=== PATIENT | female | born 1960 | race Caucasian/White ===

== ENCOUNTER 2018-10-19 06:38 | Day surgery (SDC) | payer OTHER ==
[~2018-10-19] VITALS: Ht 160 cm; Wt 70.8 kg
[2018-10-19] VITALS (8 sets, daily range): BP systolic 106–142; BP diastolic 52–76
--- NOTE | 2018-10-19 06:13 | Anethesia Preoperative Eval ---
Anesthesia Pre-op PMH/ROS General Date of Evaluation: Oct 19, 2018 Time of Evaluation: 06:09 Anesthesiologist: belgica ASA Score: ASA 3 Mallampati Score Class I : Soft palate, uvula, fauces, pillars visible Class II: Soft palate, uvula, fauces visible Class III: Soft palate, base of uvula visible Class IV: Only hard plate visible Mallampati Classification: Class II Surgeon: yane Diagnosis: gerd, abdominal bloating Surgical Procedure: egd/colonoscopy Anesthesia History: none Social History: smoking - nonsmoker Family History: no anesthesia problems Allergies: Coded Allergies: No Known Allergies (Unverified , 10/19/18) Medications: see eMAR Patient NPO?: Yes Past Medical History Gastrointestinal/Genitourinary: Reports: GERD, other - hep a, liseth, cervical cancer, abdominal bloating Hematology/Immune: Reports: other - iron deficiency PSxH Narrative: tonsillectomy, appendectomy, liseth Anesthesia Pre-op Phys. Exam Physician Exam Last Vital Signs Date Time Temp Pulse Resp B/P (MAP) Pulse Ox O2 Delivery O2 Flow Rate FiO2 10/19/18 07:06 Room Air 10/19/18 07:00 97.6 61 17 106/61 98 Constitutional: NAD Neurologic: CN 2-12 intact Cardiovascular: RRR Respiratory: CTA Gastrointestinal: S/NT/ND Airway Exam Mallampati Score: Class II MO: full Neck: supple TMD: 2fb ROM: full Teeth: intact Anesthesia Pre-op A/P Risk Assessment & Plan Assessment: asa3 Plan: mac Status Change Before Surgery: No Pre-Antibiotics Drug: Jeimy Mayfield MD Oct 19, 2018 06:13
[~2018-10-19 06:38] MED LIST: Atropine Inj 1mg/10ml Syr IV PRN; DiphenhydrAMINE 50mg/ml Inj IVP PRN; Midazolam 2mg/2ml Inj IVP PRN; NKM; fentaNYL 100 mcg/2 mL IV PRN
--- NOTE | 2018-10-19 08:25 | Short Stay Surgery H&P ---
History of Present Illness History of Present Illness Chief Complaint See typed H&P attached HPI Donna Bertrand is a 58 year old female who was admitted on for Bloating, Iron Deficiency Patient History Allergies: Coded Allergies: No Known Allergies (Unverified , 10/19/18) Medication History Scheduled No Known Medications* (NKM - No Known Medications*), 0 ., (Reported) Physical Exam Vital Signs Last Vital Signs Date Time Temp Pulse Resp B/P (MAP) Pulse Ox O2 Delivery O2 Flow Rate FiO2 10/19/18 07:06 Room Air 10/19/18 07:00 97.6 61 17 106/61 98 Plan Attestation Are the patient's medical conditions optimized for surgery? Alexandria Fabian MD Oct 19, 2018 08:25
--- NOTE | 2018-10-19 08:27 | Pre-Procedure Note/Attestation ---
Pre-Procedure Note/Attestation Complete Prior to Procedure Planned Procedure: not applicable Procedure Narrative: EGD/Colon Indications for Procedure Pre-Operative Diagnosis: Iron deficiency, KESHAWN, FH of CA Attestation I attest that I discussed the nature of the procedure; its benefits; risks and complications; and alternatives (and the risks and benefits of such alternatives ), prior to the procedure, with the patient (or the patient's legal home office representative). I attest that, if there was a reasonable possibility of needing a blood transfusion, the patient (or the patient's legal home office representative) was given the [facility] standardized written summary, pursuant to the Darrick Deedee Blood Safety Act ([place] Health and Safety Code # 1645, as amended). I attest that I re-evaluated the patient just prior to the surgery and that there has been no change in the patient's H&P, except as documented below: Alexandria Fabian MD Oct 19, 2018 08:27
[2018-10-19] MEDS ORDERED: LR 1000ml ONE (08:30)
[2018-10-19] MEDS ORDERED: Lidocaine 1% MPF 10mg/ml 5ml ONE (08:30)
[2018-10-19] MEDS ORDERED: Propofol 200mg/20ml IV ONE (08:30)
--- NOTE | 2018-10-19 09:36 | Endoscopy Procedure Note ---
Endoscopy Procedure Note General Indication for Procedure: KESHAWN, FH of CA , Fe deficiency Procedures Performed: EGD, colonoscopy Operative Findings/Diagnosis: gastric polyp, solid cecum and TI stool, external anal tags Specimen: yes Pt Tolerated Procedure Well: Yes Estimated Blood Loss: none Anesthesia Anesthesiologist: Cristian kaye Anesthesia: MAC Medications Medication Given: see anesthesia record Inserted Devices Implant(s) used?: No GI Core Measures 50 yrs or older w/o bx or poly: No 10yrs. F/U not recommended: No If not recommended, why?: Above average risk 10 yrs. F/U needed: No 18 years or older w/prev. colo: Yes <3yrs. since last colonoscopy: No Med reason:<3 yrs.: System Reason:<3 yrs.: Last colonoscopy >= to 3yrs: Yes Alexandria Fabian MD Oct 19, 2018 09:36
--- NOTE | 2018-10-19 15:47 | Immediate Post-Op Evaluation ---
Immediate Post-Op Evalulation Immediate Post-Op Evalulation Procedure: egd/colonoscopy Date of Evaluation: Oct 19, 2018 Time of Evaluation: 09:42 IV Fluids: [id number] Blood Products: none Estimated Blood Loss: negligible Blood Pressure Systolic: 155 Blood Pressure Diastolic: 78 Pulse Rate: 78 Respiratory Rate: 18 O2 Sat by Pulse Oximetry: 99 Temperature (Fahrenheit): 97.0 Pain Score (1-10): 0 Nausea: No Vomiting: No Complications none Patient Status: awake, reacts, patent Hydration Status: adequate Drug: Jeimy Mayfield MD Oct 19, 2018 15:47
--- NOTE | 2018-10-19 15:49 | 48 Hour Post Anesthesia Eval ---
Post Anesthesia Evaluation Procedure: egd/colonoscopy Date of Evaluation: Oct 19, 2018 Time of Evaluation: 09:44 Blood Pressure Systolic: 139 0: 52 Pulse Rate: 70 Respiratory Rate: 18 Temperature (Fahrenheit): 97.0 O2 Sat by Pulse Oximetry: 99 Airway: patent Nausea: No Vomiting: No Pain Intensity: 0 Hydration Status: adequate Cardiopulmonary Status: stable Mental Status/LOC: patient returned to baseline Post-Anesthesia Complications: none Follow-up care needed: N/A Jeimy Hernandez MD Oct 19, 2018 15:49
--- NOTE | 2018-10-19 17:00 | Procedure Note ---
DATE OF PROCEDURE: 10/19/2018 PROCEDURE: Endoscopy and colonoscopy. SURGEON: Alexandria Fabian M.D. ANESTHESIA: Please see the separate anesthesiologist notes for details. PRE-ENDOSCOPIC DIAGNOSES: Symptoms of gastroesophageal reflux, iron deficiency, family history of colon cancer. POST-ENDOSCOPIC DIAGNOSES: 1. A diminutive gastric polyp, status post biopsy removal. 2. Status post random biopsies of the normal duodenum and antrum. 3. No visual evidence of reflux esophagitis. 4. Suboptimal colonic preparation with solid stool seen in the cecum and in the terminal ileum. 5. Normal terminal ileum mucosa for about 5 cm although visualization was difficult due to solid stool in this area. 6. No other colonic polyps were seen although visualization was limited due to solid stool seen in the cecum area. 7. External anal skin tags seen on external evaluation. PROCEDURE: The procedure its risks, indications, alternatives, and possible complications were explained and informed consent was obtained. Diagnostic upper endoscope was introduced through the oropharynx and advanced to the duodenum. The endoscope was then gradually withdrawn and the mucosa examined carefully. The rectal exam was then done and the colonoscope was introduced into the rectum and advanced to terminal ileum. The colonoscope was then gradually withdrawn and the mucosa examined carefully. Examination revealed findings and procedures done as listed above. The patient tolerated the procedure well and was left to recovery in good condition. COMPLICATIONS: None. RECOMMENDATIONS: 1. Follow up biopsy results. 2. Discuss medication use for constipation and bloating at next visit. 3. Monitor CBC and iron panel. 4. Consider repeat colonoscopy if necessary. Alexandria Fabian M.D. DR: Juan JOB#: [id number] CC: Alexandria Fabian M.D.; Fax#: [phone] [facility]
== END 2018-10-19 10:40 | disposition home or self-care (01) ==
LOC: GAS 06:38
DX: E61.1 Iron deficiency (principal); K31.7 Polyp of stomach and duodenum; K29.50 Unspecified chronic gastritis without bleeding; Z80.0 Family history of malignant neoplasm of digestive organs; K64.4 Residual hemorrhoidal skin tags; R73.03 Prediabetes; E55.9 Vitamin D deficiency, unspecified; Z85.41 Personal history of malignant neoplasm of cervix uteri; Z90.710 Acquired absence of both cervix and uterus; Z90.79 Acquired absence of other genital organ(s); Z90.722 Acquired absence of ovaries, bilateral; Z90.49 Acquired absence of other specified parts of digestive tract
CPT/HCPCS: 43239; 45378; J2704; 94003; 94150